=== PATIENT | female | born 1995 | race Caucasian/White ===

== ENCOUNTER → 2016-09-28 | Outpatient (CLI) | payer OTHER ==
[2016-09-28 12:08] LABS: Glucose 3 Hour, Gest 59 mg/dL
== END | disposition home or self-care (01) ==
LOC: LABWHC1 07:44
PROVIDERS: ATTEND Obstetrics & Gynecology
DX: Z34.83 Encounter for supervision of other normal pregnancy, third trimester (principal)
CPT/HCPCS: 36415; 82951; 82952

== ENCOUNTER → 2016-09-28 | Outpatient (CLI) | payer OTHER ==
--- NOTE | 2016-09-29 08:06 | US ---
EXAMINATION TYPE: US OB >= 14 wk fetus DATE OF EXAM: 09/28/2016 4:12 PM COMPARISON: None CLINICAL HISTORY: O36.63X0 Large for dates GESTATIONAL AGE / DATING Physician Established: (35 weeks/4 days) EDC: 10/29/16 Dates by LMP: unknown Dates by First Scan: (35 weeks/2 days) EDC: 10/31/16 Dates by Current Scan: (33 weeks/4 days) EDC: 11/12/16 SURVEY IUP: Single PLACENTA: Anterior PREVIA: No Previa CINDY: 14.6 cm CERVICAL LENGTH (transabdominal: norm > 3.0cm): not seen CERVICAL LENGTH (transvaginal: norm> 2.5cm): 2.9 cm (Supplemental transvaginal imaging performed to verify cervical length.) BIOMETRY PRESENTATION: Vertex BPD: 8.7 cm 35 weeks / 0 days HC: 31.3 cm 35 weeks / 0 days AC: 30.6 cm 34 weeks / 4 days FL: 6.3 cm 32 weeks / 3 days ESTIMATED WEIGHT IN GRAMS: 2334 grams ESTIMATED WEIGHT IN LBS/OZS: 5 lbs. 2 oz. WEIGHT PERCENTAGE BASED ON ESTABLISHED DATES: 13.2 % HC/AC: 1.0 FL/AC: 20.5 HEART RATE: 155 bpm RHYTHM: Abnormal Anatomy seen: Kidneys Bladder Stomach Sag Spine Trv Spine 4 chamber heart situs diaphragm nose/lips not well seen 3 vessel chord TECHNOLOGIST IMPRESSION: As seen above IMPRESSION: Single viable intrauterine corresponding to ultrasound age 33 weeks 4 days with estimated d ate of delivery 12 Nov 2016 by today's exam. Limited survey.
== END | disposition home or self-care (01) ==
LOC: RADUSWWP 15:30
PROVIDERS: ATTEND Obstetrics & Gynecology
DX: O36.63X0 Maternal care for excessive fetal growth, third trimester, not applicable or unspecified (principal); Z3A.33 33 weeks gestation of pregnancy
CPT/HCPCS: 76805; 76817

== ENCOUNTER 2016-10-20 17:08 | Outpatient (CLI) | payer OTHER ==
[2016-10-20 17:21] VITALS: BP 146/77; PULSE 112; RESP 18; TEMP 96.9
--- NOTE | 2016-10-21 12:39 | P.MSEPDOC ---
Presenting Problems - Arrival Data Date of Arrival on Unit: 10/20/16 Time of Arrival on Unit: 17:08 Mode of Transport: Ambulatory - Complaint OB-Reason for Admission/Chief Complaint: Possible Onset of Labor Comment: contrcations every 7 min. pt denies leaking or bleeding Medical History - Information : 3 Para: 0 Term: 0 : 0 Abortions: Spontaneous or Elective: 0 Number of Living Children: 2 - Gestational Age Expected Date of Delivery: 10/29/16 Gestational Age by SARIKA (wks/days): 38 Weeks and 6 Days Review of Systems - Review of Systems Constitutional: No problems Breast: No problems ENT: No problems Cardiovascular: No problems Respiratory: No problems Gastrointestinal: No problems Genitourinary: No problems Musculoskeletal: No problems Neurological: No problems Skin: No problems Vital Signs - Temperature Temperature: 96.9 F Temperature Source: Temporal Artery Scan - Pulse Right Sitting Brachial Pulse Rate: 112 Pulse Assessment Method: Automatic Cuff - Respirations Respiratory Rate: 18 Oxygen Delivery Method: Room Air O2 Sat by Pulse Oximetry: 99 - Blood Pressure Right Arm Sitting Blood Pressure: 146/77 Blood Pressure Mean: 100 Blood Pressure Source: Automatic Cuff Medical Screen Scoring (Pre) - Uterine Contractions Frequency: > 5 minutes apart = 1 Duration: > 40 seconds = 2 Intensity: N/A - Maternal Vital Signs Maternal Temperature: N/A Maternal Blood Pressure: N/A Signs of Preeclampsia: N/A Maternal Respirations: N/A - Maternal Trauma Maternal Trauma: N/A - Assessment Baseline FHR: 145 Heart Rate - NICHD Category: Category I (Normal) = 0 NST: Reactive Position: N/A Station: N/A - Total Score Total Score (Pre): 3 - Level of Risk Level of Risk: Low (0-5) Medical Screen Scoring (Post) - Cervical Exam Dilation: 1-3 cm = 1 Membranes: Intact - Uterine Contractions Frequency: > 5 minutes apart = 1 Duration: > 40 seconds = 2 Intensity: N/A - Maternal Vital Signs Maternal Temperature: N/A Maternal Blood Pressure: N/A Signs of Preeclampsia: N/A Maternal Respirations: N/A - Maternal Trauma Maternal Trauma: N/A - Assessment Heart Rate: 155 Heart Rate - NICHD Category: Category I (Normal) = 0 NST: Reactive Position: N/A Station: N/A - Total Score Total Score (Post): 4 - Post Treatment Level of Risk Post Treatment Level of Risk: Low (0-5) Physician Notification (Post) - Physician Notified Physician Notified Date: 10/20/16 Physician Notified Time: 17:42 Physician/Practitioner Notified:: dr mckenzie Spoke With: verbal New Order Received: Yes - Notification Comment Comment: order to recheck pts cervix after one hour. if no change in cervix or pt condition, discharge patient with instructions. Disposition - Disposition OB Disposition: Discharge to home Discharge Date: 10/20/16 Discharge Time: 18:24 I agree with the RN Medical Screening Exam: Yes Risk & Benefit of care provided described in d/c instruction: Yes Diagnosis: FALSE LABOR, UNSPECIFIED
== END 2016-10-20 18:24 | disposition home or self-care (01) ==
LOC: FBPOP 17:08
PROVIDERS: ATTEND Obstetrics & Gynecology
DX: O47.9 False labor, unspecified (principal); Z3A.38 38 weeks gestation of pregnancy
CPT/HCPCS: 59025; G0463; 99213

== ENCOUNTER 2016-10-21 07:36 | Inpatient (IN) | payer OTHER ==
[2016-10-21] MEDS: LACTATED RINGERS 1,000 ML IV SCH ×2 (07:45→13:50)
[2016-10-21] MEDS ORDERED: LIDOCAINE 1% (PF) 10 MG/ML (30 ML SDV) SQ PRN (07:54)
[2016-10-21] MEDS ORDERED: TERBUTALINE 1 MG/ML VIAL SQ PRN (07:54)
[2016-10-21] MEDS ORDERED: METHYLERGONOVINE 0.2 MG/ML 1 ML AMP IM PRN (07:54)
[2016-10-21] MEDS ORDERED: OXYTOCIN 10 UNIT/ML 1 ML VIAL IM PRN (07:54)
[2016-10-21] MEDS ORDERED: CARBOPROST TROMETHAMINE 250 MCG/ML 1 ML AMP IM PRN (07:54)
[2016-10-21] MEDS ORDERED: OXYTOCIN 30 UNITS/500 ML NS 30 UNIT in SALINE 1 500ML.BAG IV SCH ×2 (08:00→17:30)
[2016-10-21 08:15] LABS: Basophils % (A) 0 %; CH 31.1; CHCM 34.9; Eosinophils # (A) 0.1 k/uL (0-0.7); Eosinophils % (A) 1 %; HCT 37.3 % (34.0-46.0); HDW 2.88; HGB 13.3 gm/dL (11.4-16.0); Luc # (Auto) 0.19; Luc % (Auto) 2; Lymphocytes # (A) 1.9 k/uL (1.0-4.8); Lymphocytes % (A) 22 %; MCHC 35.6 g/dL (31.0-37.0); MCV 89.8 fL (80.0-100.0); Mean Platelet Volume 8.5; Monocytes # (A) 0.6 k/uL (0-1.0); Monocytes % (A) 7 %; Neutrophils # (A) 6.1 k/uL (1.3-7.7); Neutrophils % (A) 69 %; RBC 4.16 m/uL (3.80-5.40); RDW 14.8 % (11.5-15.5); WBC 8.9 k/uL (3.8-10.6); WBC (Perox) 9.77
[2016-10-21 09:32] VITALS: BMI 35.2
[2016-10-21] MEDS ORDERED: BUTORPHANOL 1 MG/ML 1 ML VIAL IV PRN (11:07)
[2016-10-21] MEDS ORDERED: diphenhydrAMINE 50 MG CAP PO PRN (17:27)
[2016-10-21] MEDS ORDERED: Acetaminophen-Codeine 300-30mg TAB PO PRN ×2 (17:27)
[2016-10-21] MEDS ORDERED: WITCH HAZEL 1 EACH MED..PAD TOPICAL PRN (17:27)
[2016-10-21] MEDS ORDERED: HYDROCORTISONE 2.5% RECTAL CREAM 30 GM TUBE RECTAL PRN (17:27)
[2016-10-21] MEDS ORDERED: SIMETHICONE 80 MG CHEWABLE PO PRN (17:27)
[2016-10-21] MEDS ORDERED: BENZOCAINE/MENTHOL SPRAY 1 GM/SPRAY AEROSOL TOPICAL PRN (17:27)
[2016-10-21] MEDS ORDERED: ZOLPIDEM 5 MG TAB PO PRN (17:27)
[2016-10-21] MEDS ORDERED: diphenhydrAMINE 50 MG/ML 1 ML VIAL IVP PRN ×2 (17:27)
[2016-10-21] MEDS ORDERED: ACETAMINOPHEN TAB 325 MG TAB PO PRN (17:27)
[2016-10-21] MEDS ORDERED: diphenhydrAMINE 25 MG CAP PO PRN (17:27)
[2016-10-21] MEDS ORDERED: LANOLIN CREAM 5 GM TUBE TOPICAL PRN (17:27)
--- NOTE | 2016-10-21 17:27 | P.HPOB ---
History of Present Illness H&P Date: 10/21/16 Chief Complaint: SROM 21 year old presents at 38 weeks and 6 days with spontaneous rupture of membranes at 7am. HEr cervix was 1-2/70/-2 and she is not radha. heart tones 140-145 with moderate variability and reactive. Review of Systems All systems: negative Constitutional: Denies chills, Denies fever Eyes: denies blurred vision, denies pain Ears, nose, mouth and throat: Denies headache, Denies sore throat Cardiovascular: Denies chest pain, Denies shortness of breath Respiratory: Denies cough Gastrointestinal: Denies abdominal pain, Denies diarrhea, Denies nausea, Denies vomiting Genitourinary: Denies dysuria, Denies hematuria Musculoskeletal: Denies myalgias Integumentary: Denies pruritus, Denies rash Neurological: Denies numbness, Denies weakness Psychiatric: Denies anxiety, Denies depression Endocrine: Denies fatigue, Denies weight change Past Medical History Past Medical History: No Reported History Additional Past Medical History / Comment(s): Obstetric history: first was a vaginal delivery in 2013, 7#5oz. Second was a vaginal delivery in 2014, 5#12 oz. This is her third and she's had care with me since 11 weeks. B+, abs neg, Rub Imm, RPR NR, Hep B neg. GBS neg. History of Any Multi-Drug Resistant Organisms: None Reported Past Surgical History: No Surgical Hx Reported Past Anesthesia/Blood Transfusion Reactions: No Reported Reaction Past Psychological History: No Psychological Hx Reported Smoking Status: Current every day smoker Past Alcohol Use History: Occasional Past Drug Use History: Marijuana - Past Family History Mother Family Medical History: Thyroid Disorder Medications and Allergies Home Medications Medication Instructions Recorded Confirmed Type No Known Home Medications [No 10/21/16 10/21/16 History Known Home Medications] Allergies Allergy/AdvReac Type Severity Reaction Status Date / Time amoxicillin Allergy Rash/Hives Verified 10/21/16 09:24 Penicillins Allergy Rash/Hives Verified 10/21/16 09:24 Exam Osteopathic Statement: *. No significant issues noted on an osteopathic structural exam other than those noted in the History and Physical/Consult. - Vital Signs Vital signs: Vital Signs Temp Pulse Resp BP Pulse Ox 10/21/16 08:02 96.4 F L 87 16 133/76 97 Intake and Output 10/21/16 10/21/16 10/21/16 06:59 14:59 22:59 Intake Total 1000 Balance 1000 Intake: IV 1000 Lactated Ringers 1,000 ml 1000 @ 125 mls/hr IV .Q8H [facility] Rx#:[id number] Other: Weight 92.986 kg Patient Weight 10/22/16 06:59 Weight 92.986 kg Heart: Regular rate and rhythm Lungs: Clear to auscultation bilaterally Abdomen: Soft, nontender Extremities: Negative Homans sign Results Result Diagrams: 10/21/16 08:05 Abnormal Lab Results - Last 24 Hours (Table) 10/21/16 Range/Units 08:05 Plt Count 140 L (150-450) k/uL Assessment and Plan (1) Spontaneous rupture of membranes Status: Acute Plan: 1. Admit to family place 2. Pitocin augmentation 3. Anticipate normal vaginal delivery
--- NOTE | 2016-10-21 17:30 | P.PROBDLV ---
Vaginal Delivery Note - . Vaginal Delivery Note: 21-year-old presents at 38 weeks and 6 days with spontaneous rupture membranes at 7 AM. When she presented to triage her cervix is 1-2 cm dilated, 70% effaced, -2 station. She was not radha. Pitocin augmentation was started. heart tones are 140-145 with moderate variability and reactive. She did get an epidural and was comfortable. Her cervix was completely dilated at 1700, she pushed, and delivered a viable female infant over intact perineum under epidural anesthesia at 1710. Head delivered OA, anterior shoulder delivered gentle downward traction followed by posterior shoulder and rest of body. Nose and mouth bulb suctioned, cord clamped and cut, placed mother's abdomen. Apgars 9, 9, weight 5 lbs. 7 oz. Placenta delivered spontaneously, intact with three-vessel cord at 1716. Vagina, cervix, and perineum were inspected. No lacerations noted. Estimated blood loss 200 mL. Mother and baby in stable condition.
[2016-10-21] MEDS: IBUPROFEN 600 MG TAB PO PRN (19:26)
[2016-10-21] MEDS: SENNOSIDES-DOCUSATE SODIUM 1 EACH TAB PO SCH (19:27)
[2016-10-22] MEDS: IBUPROFEN 600 MG TAB PO PRN ×2 (06:28→15:22)
[2016-10-22] MEDS: SENNOSIDES-DOCUSATE SODIUM 1 EACH TAB PO SCH (07:45)
--- NOTE | 2016-10-22 08:52 | P.DS ---
Providers Date of admission: 10/21/16 07:36 Expected date of discharge: 10/22/16 Attending physician: Gela Grimes - Discharge Diagnosis(es) (1) Spontaneous rupture of membranes Current Visit: Yes Status: Resolved (2) Normal vaginal delivery Current Visit: No Status: Acute Hospital Course: Patient presented with spontaneous rupture membranes. She underwent Pitocin augmentation and had a normal vaginal delivery. Her course was uncomplicated. She'll be discharged home day #1 in stable condition to follow-up with me in 6 weeks. Plan - Discharge Summary New Discharge Prescriptions: Ibuprofen [Motrin] 600 mg PO Q6HR PRN #30 tab PRN Reason: Mild Pain Or Fever >= 100.5 Discharge Medication List Ibuprofen [Motrin] 600 mg PO Q6HR PRN #30 tab 10/22/16 [Rx] Follow up Appointment(s)/Referral(s): Gela Grimes DO [Doctor of Osteopathic Medicine] - 6 Weeks Discharge Disposition: HOME SELF-CARE
[2016-10-22] MEDS ORDERED: SODIUM CHLORIDE 0.9% 100 ML BAG ONE (13:34)
[2016-10-22] MEDS ORDERED: fentaNYL (PF) 50 MCG/ML 5 ML AMP ONE (13:34)
[2016-10-22] MEDS ORDERED: BUPIVACAINE (PF) 0.25% 30 ML VIAL ONE (13:34)
[2016-10-22 16:23] VITALS: BP 116/69; PULSE 86; RESP 18; TEMP 97.8
== END 2016-10-22 18:45 | disposition home or self-care (01) | DRG 775 ==
LOC: 4FBP 07:36
PROVIDERS: ADMIT Obstetrics & Gynecology; ATTEND Obstetrics & Gynecology
PROC: 10E0XZZ Delivery of Products of Conception, External Approach (ICD-10-PCS; principal; 2016-10-21)
PROC: 3E0S3NZ Introduction of Analgesics, Hypnotics, Sedatives into Epidural Space, Percutaneous Approach (ICD-10-PCS; 2016-10-21)
DX: O99.334 Smoking (tobacco) complicating childbirth (principal); F17.200 Nicotine dependence, unspecified, uncomplicated; Z37.0 Single live birth; Z3A.38 38 weeks gestation of pregnancy; Z83.49 Family history of other endocrine, nutritional and metabolic diseases; Z88.0 Allergy status to penicillin
CPT/HCPCS: 85025; 88307

== ENCOUNTER 2016-10-29 01:15 | Observation (INO) | payer OTHER ==
[2016-10-29] MEDS ORDERED: SODIUM CHLORIDE 0.9% 1,000 ML IV ONE (01:24)
[2016-10-29] MEDS ORDERED: MORPHINE SULFATE 4 MG/ML SYRINGE IVP STA (01:41)
--- NOTE | 2016-10-29 01:50 | ED ---
Female Urogenital HPI <Kaushal Langley - Last Filed: 10/29/16 03:24> - General Source: EMS, RN notes reviewed Mode of arrival: EMS Limitations: no limitations <Bette Dooley - Last Filed: 10/29/16 04:08> - General Chief complaint: Vaginal Bleeding Stated complaint: female Time Seen by Provider: 10/29/16 01:19 - History of Present Illness Initial comments: Patient is a 21-year-old female presents emergency room for evaluation of vaginal bleeding. Patient states on 10/21/16 she gave to her child. Patient states her child was born at 38 weeks, 6 days. Patient states it was normal vaginal . Patient states afterwards she did pass a few clots. Patient states she was told by her SALES ADVISORY MANAGER that this was normal. Patient states that she was told if it gets worse to follow-up with OB as soon as possible or come to the emergency room. Patient states today she woke up not feeling well. Patient states she had an episode where she sat on the toilet and passed multiple clots and lots of blood. Patient states she felt like she was "peeing out blood". Patient states she then felt extremely lightheaded and nauseous so she called EMS. Patient states she's feeling very lightheaded and weak. Patient is . Patient states this has not happened to her during her other previous pregnancies. Patient states she's having bilateral lower abdominal cramping as well. Patient states the cramping radiates to her back. Patient denies chest pain or shortness of breath. Patient denies any known fevers. Patient denies pain or burning during urination, trouble urinating or blood in urine. (Bette Dooley) - Related Data Previous Rx's Medication Instructions Recorded Ibuprofen [Motrin] 600 mg PO Q6HR PRN #30 tab 10/22/16 Allergies Allergy/AdvReac Type Severity Reaction Status Date / Time amoxicillin Allergy Rash/Hives Verified 10/21/16 09:24 Penicillins Allergy Rash/Hives Verified 10/21/16 09:24 Review of Systems ROS Other: All systems not noted in ROS Statement are negative. <Kaushal Langley - Last Filed: 10/29/16 03:24> ROS Other: All systems not noted in ROS Statement are negative. <Bette Dooley - Last Filed: 10/29/16 04:08> ROS Statement: Those systems with pertinent positive or pertinent negative responses have been documented in the HPI. Past Medical History Past Medical History: No Reported History Additional Past Medical History / Comment(s): Obstetric history: first was a vaginal delivery in 2013, 7#5oz. Second was a vaginal delivery in 2015, 5#12 oz. This is her third and she's had care with me since 11 weeks. B+, abs neg, Rub Imm, RPR NR, Hep B neg. GBS neg. History of Any Multi-Drug Resistant Organisms: None Reported Past Surgical History: No Surgical Hx Reported Past Anesthesia/Blood Transfusion Reactions: No Reported Reaction Past Psychological History: No Psychological Hx Reported Smoking Status: Current every day smoker Past Alcohol Use History: Occasional Past Drug Use History: Marijuana - Past Family History Mother Family Medical History: Thyroid Disorder <Bette Dooley - Last Filed: 10/29/16 04:08> General Exam <Kaushal Langley - Last Filed: 10/29/16 03:24> Limitations: no limitations General appearance: alert, in no apparent distress Head exam: Present: atraumatic, normocephalic, normal inspection Eye exam: Present: normal appearance ENT exam: Present: normal exam Neck exam: Present: normal inspection Respiratory exam: Present: normal lung sounds bilaterally. Absent: respiratory distress Cardiovascular Exam: Present: normal rhythm, tachycardia, normal heart sounds GI/Abdominal exam: Present: soft, tenderness (Diffuse right lower quadrant left lower quadrant tenderness), normal bowel sounds. Absent: distended, guarding, rebound, rigid External exam: Present: normal external exam Speculum exam: Present: vaginal bleeding (Mild vaginal bleeding and few clots noted.) Extremities exam: Present: normal inspection Back exam: Present: normal inspection Neurological exam: Present: alert, oriented X3, CN II-XII intact, normal gait Psychiatric exam: Present: normal affect, normal mood Skin exam: Present: warm, dry, intact, normal color. Absent: rash <Bette Dooley - Last Filed: 10/29/16 04:08> - General Exam Comments Initial Comments: Laying in exam room, no acute distress. (Bette Dooley) Medical Decision Making - Lab Data Result diagrams: 10/29/16 01:51 10/29/16 01:51 <Kaushal Langley - Last Filed: 10/29/16 03:24> - Lab Data Result diagrams: 10/29/16 01:51 10/29/16 01:51 Interpretation: no acute changes - Radiology Data Radiology results: report reviewed, image reviewed <Bette Dooley - Last Filed: 10/29/16 04:08> - Medical Decision Making Patient is a 21-year-old female presents emergency room for evaluation of vaginal bleeding. Patient's hemoglobin on 10/21/16 was 13.3. Patient 's hemoglobin today is 11.2. Patient is having mild vaginal bleeding with abdominal cramping. Ultrasound showed retained products of conception. Case discussed with Dr. Langley. Dr. Langley discussed case with Dr. Braga who agreed to admit patient. Patient is noted to have a fever as well. Patient is tachycardic. Patient started on Methergine, Kefzol. Repeat CBC at 6 AM. Lactic acid pending. NPO diet. (Bette Dooley) - Lab Data Lab Results 10/29/16 10/29/16 10/29/16 Range/Units 01:51 01:51 01:51 WBC 11.3 H (3.8-10.6) k/uL RBC 3.55 L (3.80-5.40) m/uL Hgb 11.2 L (11.4-16.0) gm/dL Hct 31.7 L (34.0-46.0) % MCV 89.4 (80.0-100.0) fL MCH 31.5 (25.0-35.0) pg MCHC 35.3 (31.0-37.0) g/dL RDW 13.8 (11.5-15.5) % Plt Count 191 (150-450) k/uL Neutrophils % 77 % Lymphocytes % 13 % Monocytes % 8 % Eosinophils % 1 % Basophils % 0 % Neutrophils # 8.7 H (1.3-7.7) k/uL Lymphocytes # 1.4 (1.0-4.8) k/uL Monocytes # 0.9 (0-1.0) k/uL Eosinophils # 0.1 (0-0.7) k/uL Basophils # 0.0 (0-0.2) k/uL PT (9.0-12.0) sec INR (<1.1) Sodium 138 (137-145) mmol/L Potassium 4.2 (3.5-5.1) mmol/L Chloride 106 (98-107) mmol/L Carbon Dioxide 22 (22-30) mmol/L Anion Gap 10 mmol/L BUN 12 (7-17) mg/dL Creatinine 0.90 (0.52-1.04) mg/dL Est GFR (MDRD) Af Amer >60 (>60 ml/min/1.73 sqM) Est GFR (MDRD) Non-Af >60 (>60 ml/min/1.73 sqM) Glucose 91 (74-99) mg/dL Calcium 9.0 (8.4-10.2) mg/dL Total Bilirubin 0.3 (0.2-1.3) mg/dL AST 15 (14-36) U/L ALT 19 (9-52) U/L Alkaline Phosphatase 111 (38-126) U/L Total Protein 6.2 L (6.3-8.2) g/dL Albumin 3.2 L (3.5-5.0) g/dL Blood Type B Positive Blood Type Recheck No Antibody Screen NEGATIVE Spec Expiration Date 11/01/2016 - 235010/29/16 Range/Units 01:51 WBC (3.8-10.6) k/uL RBC (3.80-5.40) m/uL Hgb (11.4-16.0) gm/dL Hct (34.0-46.0) % MCV (80.0-100.0) fL MCH (25.0-35.0) pg MCHC (31.0-37.0) g/dL RDW (11.5-15.5) % Plt Count (150-450) k/uL Neutrophils % % Lymphocytes % % Monocytes % % Eosinophils % % Basophils % % Neutrophils # (1.3-7.7) k/uL Lymphocytes # (1.0-4.8) k/uL Monocytes # (0-1.0) k/uL Eosinophils # (0-0.7) k/uL Basophils # (0-0.2) k/uL PT 10.4 (9.0-12.0) sec INR 1.0 (<1.1) Sodium (137-145) mmol/L Potassium (3.5-5.1) mmol/L Chloride (98-107) mmol/L Carbon Dioxide (22-30) mmol/L Anion Gap mmol/L BUN (7-17) mg/dL Creatinine (0.52-1.04) mg/dL Est GFR (MDRD) Af Amer (>60 ml/min/1.73 sqM) Est GFR (MDRD) Non-Af (>60 ml/min/1.73 sqM) Glucose (74-99) mg/dL Calcium (8.4-10.2) mg/dL Total Bilirubin (0.2-1.3) mg/dL AST (14-36) U/L ALT (9-52) U/L Alkaline Phosphatase (38-126) U/L Total Protein (6.3-8.2) g/dL Albumin (3.5-5.0) g/dL Blood Type Blood Type Recheck Antibody Screen Spec Expiration Date Disposition <Kaushal Langley - Last Filed: 10/29/16 03:24> Decision Date: 10/29/16 <Bette Dooley - Last Filed: 10/29/16 04:08> Clinical Impression: bleeding Disposition: ADMITTED IP TO THIS [facility] Condition: Stable Referrals: Giulia Love MD [Primary Care Provider] - 1-2 days
[2016-10-29 02:16] LABS: ALT 19 U/L (9-52); AST 15 U/L (14-36); Alkaline Phosphatase 111 U/L (38-126); Anion Gap 10 mmol/L; Blood Urea Nitrogen 12 mg/dL (7-17); Carbon Dioxide 22 mmol/L (22-30); Chloride 106 mmol/L (98-107); Glucose 91 mg/dL (74-99); Non-African American GFR(MDRD) >60 (>60 ml/min/1.73 sqM); Potassium 4.2 mmol/L (3.5-5.1); Sodium 138 mmol/L (137-145); Total Bilirubin 0.3 mg/dL (0.2-1.3); Total Protein 6.2 g/dL (6.3-8.2)
[2016-10-29 02:33] LABS: Prothrombin Time 10.4 sec (9.0-12.0)
--- NOTE | 2016-10-29 02:37 | US ---
EXAM: US Pelvis Complete, Transabdominal. CLINICAL HISTORY: Reason: Pain TECHNIQUE: Real-time transabdominal pelvic ultrasound (complete) with image documentation. COMPARISON: No relevant prior studies available. FINDINGS: Uterus/cervix: Uterus measures 14.3 x 8.9 x 8.8 cm. The uterus is diffusely heterogeneous and enlarged consistent with uterus. There is focal complex cystic area in the central uterus measuring approximately 4.6 x 3.7 cm. This demonstrate increased color flow. Retained product of conception is difficult to exclude. Endometrial stripe measures approximately 5 cm. No myometrial mass. Right ovary: Right ovary measures 2.5 x 1.7 x 1.7 cm. Color flow is seen. Normal blood flow. Left ovary: Left ovary measures 3.9 x 1.8 x 2.4 cm. Color flow is seen. Normal blood flow. Free fluid: No significant free fluid. Bladder: Unremarkable as visualized. Wall is normal thickness for degree of distention. IMPRESSION: 1. Thickened complex heterogeneous endometrium with findings concerning for retained products of conception. Close follow-up recommended. 2. Both ovaries seen and appear within normal limits
[2016-10-29 02:38] LABS: Basophils % (A) 0 %; CH 31.5; CHCM 35.4; Eosinophils # (A) 0.1 k/uL (0-0.7); Eosinophils % (A) 1 %; HCT 31.7 % (34.0-46.0); HDW 3.01; HGB 11.2 gm/dL (11.4-16.0); Luc # (Auto) 0.16; Luc % (Auto) 2; Lymphocytes # (A) 1.4 k/uL (1.0-4.8); Lymphocytes % (A) 13 %; MCH 31.5 pg (25.0-35.0); MCHC 35.3 g/dL (31.0-37.0); MCV 89.4 fL (80.0-100.0); Mean Platelet Volume 7.5; Monocytes # (A) 0.9 k/uL (0-1.0); Monocytes % (A) 8 %; Neutrophils # (A) 8.7 k/uL (1.3-7.7); Neutrophils % (A) 77 %; RBC 3.55 m/uL (3.80-5.40); RDW 13.8 % (11.5-15.5); WBC 11.3 k/uL (3.8-10.6); WBC (Perox) 11.41
[2016-10-29] MEDS ORDERED: METHYLERGONOVINE 0.2 MG/ML 1 ML AMP IM ONE (03:24)
[2016-10-29] MEDS ORDERED: ceFAZolin 1,000 MG in DEXTROSE/WATER 1 50ML.BAG IVPB STA (03:24)
[2016-10-29] MEDS ORDERED: ONDANSETRON 4 MG/2 ML VIAL IVP PRN (03:27)
[2016-10-29] MEDS ORDERED: NALOXONE 0.4 MG/ML 1 ML VIAL IV PRN (03:27)
[2016-10-29] MEDS ORDERED: MORPHINE SULFATE 4 MG/ML SYRINGE IV PRN (03:27)
[2016-10-29] MEDS: SODIUM CHLORIDE 0.9% 1,000 ML IV SCH ×2 (04:42→17:46)
[2016-10-29 05:48] VITALS: BMI 33.7
[2016-10-29 07:19] LABS: Basophils % (A) 0 %; CH 31.1; CHCM 34.2; Eosinophils # (A) 0.1 k/uL (0-0.7); Eosinophils % (A) 1 %; HDW 3.03; HGB 10.7 gm/dL (11.4-16.0); Luc # (Auto) 0.16; Luc % (Auto) 1; Lymphocytes # (A) 1.8 k/uL (1.0-4.8); Lymphocytes % (A) 16 %; MCH 31.5 pg (25.0-35.0); MCHC 34.5 g/dL (31.0-37.0); MCV 91.3 fL (80.0-100.0); Mean Platelet Volume 7.2; Monocytes # (A) 0.7 k/uL (0-1.0); Monocytes % (A) 6 %; Neutrophils # (A) 8.7 k/uL (1.3-7.7); Neutrophils % (A) 76 %; RBC 3.39 m/uL (3.80-5.40); RDW 13.8 % (11.5-15.5); WBC 11.4 k/uL (3.8-10.6); WBC (Perox) 12.33
--- NOTE | 2016-10-29 08:15 | P.HPOB ---
History of Present Illness H&P Date: 10/29/16 Chief Complaint: bleeding This is a 21 y.o. female 3, para 3, with recent vaginal delivery on 10/21. She states she has been passing occasional clots ever since her delivery , but yesterday started passing a lot of clots and was bleeding heavy. She felt lightheaded, dizzy, and nauseated so she called EMS. She did state she was feeling some chills the last couple nights and waking up sweating. Since she has been admitted, she has passed about 2 clots. Her pelvic US did show a thickened endometrium with debris and cannot rule out retained products of conception. This morning she did get up and passed 1 clot along with a little bleeding. No dizziness with getting up this morning. OB Hx: . 3 . No complications. Review of Systems Constitutional: Reports chills, Reports fatigue, Reports night sweats Gastrointestinal: Reports abdominal pain, Reports nausea Genitourinary: Reports abnormal vaginal bleeding Neurological: Denies headaches Past Medical History Past Medical History: No Reported History History of Any Multi-Drug Resistant Organisms: None Reported Past Surgical History: No Surgical Hx Reported Past Anesthesia/Blood Transfusion Reactions: No Reported Reaction Past Psychological History: No Psychological Hx Reported Smoking Status: Current every day smoker Past Alcohol Use History: Occasional Past Drug Use History: Marijuana - Past Family History Mother Family Medical History: Thyroid Disorder Father History Unknown: Yes Medications and Allergies Allergies Allergy/AdvReac Type Severity Reaction Status Date / Time amoxicillin Allergy Rash/Hives Verified 10/21/16 09:24 Penicillins Allergy Rash/Hives Verified 10/21/16 09:24 Exam Osteopathic Statement: *. No significant issues noted on an osteopathic structural exam other than those noted in the History and Physical/Consult. - Vital Signs Vital signs: Vital Signs Temp Pulse Pulse Resp BP BP Pulse Ox 10/29/16 05:30 68 18 10/29/16 04:45 98.8 F 88 18 122/59 96 10/29/16 04:33 99.3 F 68 18 113/72 98 Intake and Output 10/28/16 10/29/16 10/29/16 22:59 06:59 14:59 Output Total 400 Balance -400 Output: Urine 400 Other: Voiding Method Toilet # Voids 1 Weight 89 kg HEENT: within normal limits Heart: regular rate and rhythm Lungs: clear to auscultation bilaterally Abdomen: soft, mild suprapubic tenderness over uterine fundus. Fundus is firm. Peripad: Saturated with dark blood, but no clot (last changed 2 hours ago) With uterine massage, a little more dark blood is noted, but no clots expressed. Extremities: Neg. Ron's Results Result Diagrams: 10/29/16 07:08 10/29/16 01:51 Abnormal Lab Results - Last 24 Hours (Table) 10/29/16 Range/Units 07:08 WBC 11.4 H (3.8-10.6) k/uL RBC 3.39 L (3.80-5.40) m/uL Hgb 10.7 L (11.4-16.0) gm/dL Hct 31.0 L (34.0-46.0) % Neutrophils # 8.7 H (1.3-7.7) k/uL Assessment and Plan (1) endometritis Status: Acute (2) bleeding Status: Acute Plan: Will admit for IV antibiotics. Will add Gentamycin to Kefzol. Advised hemoglobin is stable and will try to avoid D&C unless necessary due to the endometritis. Bleeding has slowed considerably from yesterday.
[2016-10-29] MEDS ORDERED: GENTAMICIN PER PHARMACY MISCELLANE PRN (08:17)
[2016-10-29] MEDS ORDERED: Acetaminophen-Codeine 300-30mg TAB PO PRN ×2 (08:20)
[2016-10-29] MEDS ORDERED: GENTAMICIN 160 MG in SODIUM CHLORIDE 0.9% 100 ML IVPB ONE (10:00)
[2016-10-29] MEDS: IBUPROFEN 600 MG TAB PO PRN ×2 (11:04→17:44)
[2016-10-29] MEDS: METHYLERGONOVINE 0.2 MG TAB PO SCH ×3 (13:02→20:43)
[2016-10-29] MEDS: ceFAZolin 2 GM in SODIUM CHLORIDE 0.9% 100 ML IVPB SCH (15:48)
[2016-10-29] MEDS ORDERED: ZOLPIDEM 10 MG TAB PO PRN (19:03)
--- NOTE | 2016-10-29 19:14 | P.PN ---
Progress Note - Text Patient was seen and examined. She continues to have continuous type bleeding throughout the day. Patient indicated to me that she has been passing large clots at home and review of the ultrasound shows most likely retained placental products. I discussed options with the patient including expectant management versus D&C and I'm recommending proceed with a D&C at this time. Patient understands this surgery and risks including risks of infection, bleeding, possible uterine perforation. All the patient's questions are answered and a written consent is obtained. I will proceed with suction D&C tomorrow morning because the patient has eaten dinner tonight. Contacted anesthesia was arranged for 7:30 tomorrow morning.
[2016-10-29] MEDS: GENTAMICIN 120 MG in SODIUM CHLORIDE 0.9% 100 ML IVPB SCH (20:41)
[2016-10-29] MEDS: NICOTINE 7MG/24HR PATCH TRANSDERM SCH (20:41)
[2016-10-30] MEDS: ceFAZolin 2 GM in SODIUM CHLORIDE 0.9% 100 ML IVPB SCH (00:07)
[2016-10-30] MEDS: GENTAMICIN 120 MG in SODIUM CHLORIDE 0.9% 100 ML IVPB SCH (04:05)
[2016-10-30 05:37] LABS: Basophils % (A) 0 %; CH 31.2; CHCM 33.4; Eosinophils # (A) 0.1 k/uL (0-0.7); Eosinophils % (A) 2 %; HGB 9.3 gm/dL (11.4-16.0); Luc # (Auto) 0.09; Luc % (Auto) 1; Lymphocytes # (A) 1.6 k/uL (1.0-4.8); Lymphocytes % (A) 20 %; MCH 30.2 pg (25.0-35.0); MCHC 32.2 g/dL (31.0-37.0); MCV 93.8 fL (80.0-100.0); Mean Platelet Volume 7.4; Monocytes # (A) 0.5 k/uL (0-1.0); Monocytes % (A) 6 %; Neutrophils # (A) 5.7 k/uL (1.3-7.7); Neutrophils % (A) 71 %; RBC 3.09 m/uL (3.80-5.40); RDW 13.9 % (11.5-15.5); WBC 8.1 k/uL (3.8-10.6); WBC (Perox) 8.11
--- NOTE | 2016-10-30 05:56 | P.PN ---
Progress Note - Text Patient continues to bleed overnight and passed one large clot. Hemoglobin has dropped to 9.3. D&C is scheduled for earlier this morning. I did rediscuss the surgery with the patient. Plan is suction D&C at 7:30 this morning.
[2016-10-30] MEDS: SODIUM CHLORIDE 0.9% 1,000 ML IV SCH ×2 (06:22→10:37)
[2016-10-30] MEDS ORDERED: KETOROLAC 30 MG/ML 1 ML VIAL ONE (07:31)
[2016-10-30] MEDS ORDERED: IV FLUID CONTINUATION 800 ML IV ONE (07:31)
[2016-10-30] MEDS ORDERED: SUCCINYLCHOLINE CHLORIDE 100 MG/5 ML SYR IV ONE (07:31)
[2016-10-30] MEDS ORDERED: HYDROmorphone (PF) 1 MG/ML ONE (07:31)
[2016-10-30] MEDS ORDERED: LIDOCAINE 1% INJ 10MG/ML (20 ML MDV) ONE (07:31)
[2016-10-30] MEDS ORDERED: PROPOFOL 10 MG/ML 20 ML VIAL IV ONE (07:31)
[2016-10-30] MEDS ORDERED: fentaNYL (PF) 50 MCG/ML 2 ML AMP ONE (07:31)
--- NOTE | 2016-10-30 08:10 | P.OP ---
Date of Procedure: 10/30/16 Preoperative Diagnosis: Retained products of conception and uterine hemorrhage Postoperative Diagnosis: Same Procedure(s) Performed: Suction D&C Anesthesia: NURYS Surgeon: Ezequiel Ye Estimated Blood Loss (ml): 100 Urine output (ml): 100 Pathology: other (Uterine contents) Condition: stable Disposition: PACU Indications for Procedure: Please see dictated H&P per Dr. Braga on this patient's admission. Brief summary this is a pleasant 21-year-old multiparous patient status post vaginal delivery approximately 1-1/2 weeks ago was admitted through the emergency department with bleeding. Patient is placed on IV antibiotics, however ultrasound did show what appears to be large amount of retained products. Patient continued to bleed and hemoglobin dropped to 9.3 and I advised to proceed with suction D&C for treatment. Patient does understand the surgery and risks clear as infection, bleeding, possible uterine perforation. All the patient's questions are answered written consent is obtained. Operative Findings: Patient had about a 2-3 cm piece of what appears to be placental tissue and some amniotic membranes. Description of Procedure: This patient is taken to the operating room where she is laid in the supine position. She subsequent undergoes general endotracheal anesthesia without incident. With an adequate level of anesthesia was placed in dorsal lithotomy position. She has a vaginal perineal prep and drape. Examination under anesthesia shows a enlarged uterus. Cervix is dilated to allow 1 finger. A weighted speculum was placed in the posterior vagina. The bladder is drained for 100 mL of clear urine. I placed an Allis clamp and the anterior lip of the cervix. Cervix is easily dilated to allow a 14-Hebrew curved curet into the uterine cavity. Suction is applied and a large amount of tissue is removed. Multiple passes are made until no further tissue was noted. A gentle sharp curettage done of all 4 quadrants as well and again no further tissue was noted. Bleeding subsides at this time. At this point the procedure is ended. The Allis clamp and weighted speculum removed. All counts are correct 3. Patient is taken to the recovery room in satisfactory condition. No complications.
--- NOTE | 2016-10-30 08:13 | P.DS ---
Providers Date of admission: 10/29/16 04:18 Expected date of discharge: 10/30/16 Attending physician: Herlinda Braga Primary care physician: Giulia Love - Discharge Diagnosis(es) (1) Retained products of conception after delivery with complications Current Visit: Yes Status: Acute Hospital Course: Please see dictated H&P per Dr. Braga on this patient's admission. Brief summary is a 21-year-old multiparous patient admitted through the emergency department with bleeding. Patient's placed on IV antibiotics and ultrasound showed evidence of retained products of conception. Patient continued bleeding and subsequently underwent a suction D&C. Postoperatively patient did well was felt be stable for discharge home follow up with Dr. Grimes 1 week. Procedures: Suction D&C Patient Condition at Discharge: Good Plan - Discharge Summary New Discharge Prescriptions: Acetaminophen-Codeine 300-30mg [Tylenol w/codeine #3] 1 - 2 each PO Q4HR PRN # 30 tab PRN Reason: Pain Scale 4-6 Cephalexin [Keflex] 500 mg PO Q6HR #28 cap Ibuprofen [Motrin] 600 mg PO Q6HR PRN #40 tab PRN Reason: Pain Scale 1-3 Discharge Medication List Ibuprofen [Motrin] 600 mg PO Q6HR PRN #30 tab 10/22/16 [Rx] Acetaminophen-Codeine 300-30mg [Tylenol w/codeine #3] 1 - 2 each PO Q4HR PRN # 30 tab 10/29/16 [Rx] Cephalexin [Keflex] 500 mg PO Q6HR #28 cap 10/29/16 [Rx] Ibuprofen [Motrin] 600 mg PO Q6HR PRN #40 tab 10/29/16 [Rx] Follow up Appointment(s)/Referral(s): Gela Grimes DO [Doctor of Osteopathic Medicine] - 1 Week (Please follow-up with Dr. Grimes next week for a postoperative visit.) Patient Instructions/Handouts: Dilation and Curettage (DC) Activity/Diet/Wound Care/Special Instructions: No intercourse or anything per vagina for 6 weeks. Please call if any fever, chills, excessive vaginal bleeding, and/or abdominal pain. Please take an antibiotic 4 times a day as directed for [address] Grimes next week for a follow-up visit. Discharge Disposition: HOME SELF-CARE
[2016-10-30] MEDS: METHYLERGONOVINE 0.2 MG TAB PO SCH (10:34)
[2016-10-30] MEDS: NICOTINE 7MG/24HR PATCH TRANSDERM SCH (10:34)
[2016-10-30] MEDS: IBUPROFEN 600 MG TAB PO PRN (10:39)
[2016-10-30 12:50] VITALS: BP 110/58; PULSE 99; RESP 20; TEMP 97.2
[2016-10-30] MEDS ORDERED: GENTAMICIN TROUGH DUE 1 EACH MISC MISCELLANE ONE (19:30)
[2016-10-30] MEDS ORDERED: GENTAMICIN PEAK DUE 1 EACH MISC MISCELLANE ONE (21:30)
== END 2016-10-30 13:00 | disposition home or self-care (01) ==
LOC: SUPCPDRO 01:15 → EC 01:15 → 6PED 04:18
PROVIDERS: ADMIT Obstetrics & Gynecology; ATTEND Obstetrics & Gynecology
DX: O72.2 Delayed and secondary postpartum hemorrhage (principal); O99.335 Smoking (tobacco) complicating the puerperium; O86.12 Endometritis following delivery; F17.200 Nicotine dependence, unspecified, uncomplicated; R42 Dizziness and giddiness; R11.0 Nausea; R53.1 Weakness; R10.30 Lower abdominal pain, unspecified; Z88.0 Allergy status to penicillin
CPT/HCPCS: 96361 ×2; 96372 ×2; 96374 ×2; 99285 ×2; 59160; 36415; 86900; 86901; 88305; 80053; 83605; 85025 ×2; 85610; 86850; 87040; 93975; 76856; 96375; G0378 ×2; S4990 ×2; J2270; J1580 ×2; J2210; J0690 ×3; J2001; J3010; J1885; J1170; J0330; J2704; 96365; 96366; 96367; 96376

== ENCOUNTER → 2016-12-21 | Outpatient (CLI) | payer OTHER ==
[2016-12-21 16:22] LABS: Basophils % (A) 1 %; CH 28.3; CHCM 31.9; Eosinophils # (A) 0.1 k/uL (0-0.7); Eosinophils % (A) 2 %; HCT 41.7 % (34.0-46.0); HDW 3.22; Hypochromasia Slight; Luc # (Auto) 0.13; Luc % (Auto) 2; Lymphocytes # (A) 2.7 k/uL (1.0-4.8); Lymphocytes % (A) 35 %; MCH 28.4 pg (25.0-35.0); Mean Platelet Volume 8.1; Monocytes # (A) 0.4 k/uL (0-1.0); Monocytes % (A) 6 %; Neutrophils # (A) 4.4 k/uL (1.3-7.7); Neutrophils % (A) 56 %; RDW 13.4 % (11.5-15.5); WBC 7.8 k/uL (3.8-10.6); WBC (Perox) 7.94
[2016-12-21 16:28] LABS: HGB 13.3 gm/dL (11.4-16.0); MCV 88.6 fL (80.0-100.0)
== END ==
LOC: LABPAT 16:01
PROVIDERS: ATTEND Obstetrics & Gynecology
DX: Z01.812 Encounter for preprocedural laboratory examination (principal)
CPT/HCPCS: 36415; 85025

== ENCOUNTER 2016-12-28 08:50 | Day surgery (SDC) | payer OTHER ==
[2016-12-24 15:07] VITALS: BMI 30.9
--- NOTE | 2016-12-27 18:16 | P.HPOB ---
History of Present Illness H&P Date: 12/27/16 Chief Complaint: Family planning 21-year-old presents for laparoscopic tubal ligation. Review of Systems All systems: negative Constitutional: Denies chills, Denies fever Eyes: denies blurred vision, denies pain Ears, nose, mouth and throat: Denies headache, Denies sore throat Cardiovascular: Denies chest pain, Denies shortness of breath Respiratory: Denies cough Gastrointestinal: Denies abdominal pain, Denies diarrhea, Denies nausea, Denies vomiting Genitourinary: Denies dysuria, Denies hematuria Musculoskeletal: Denies myalgias Integumentary: Denies pruritus, Denies rash Neurological: Denies numbness, Denies weakness Psychiatric: Denies anxiety, Denies depression Endocrine: Denies fatigue, Denies weight change Past Medical History Past Medical History: No Reported History History of Any Multi-Drug Resistant Organisms: None Reported Past Surgical History: No Surgical Hx Reported Additional Past Surgical History / Comment(s): D& C recently Past Anesthesia/Blood Transfusion Reactions: No Reported Reaction Smoking Status: Current every day smoker - Past Family History Mother Family Medical History: Thyroid Disorder Father History Unknown: Yes Medications and Allergies Home Medications Medication Instructions Recorded Confirmed Type Ferrous Sulfate [Feosol] 325 mg PO DAILY 12/24/16 12/24/16 History Allergies Allergy/AdvReac Type Severity Reaction Status Date / Time amoxicillin Allergy Rash/Hives Verified 12/24/16 14:46 Penicillins Allergy Rash/Hives Verified 12/24/16 14:46 Exam Osteopathic Statement: *. No significant issues noted on an osteopathic structural exam other than those noted in the History and Physical/Consult. Heart: Regular rate and rhythm Lungs: Clear to auscultation bilaterally Abdomen: Soft, nontender Extremities: Negative Homans sign Assessment and Plan (1) Family planning Status: Acute Plan: 1. Laparoscopic tubal ligation
[~2016-12-28 08:50] MED LIST: DEXAMETHASONE SOD PHOSPHATE 10 MG/ML 1 ML VIAL IV ONE; HYDROmorphone 1 MG/ML 1 ML SYRINGE IVP PRN; LACTATED RINGERS 1,000 ML IV SCH; LIDOCAINE 1% 20 ML VIAL (10MG/ML) FOR IV START INTRADERMA PRN; MIDAZOLAM 2 MG/2 ML VIAL IV PRN; ONDANSETRON 4 MG/2 ML VIAL IVP ONE; Pre Op ABX Message 1 EACH MISC MISCELLANE ONE; SCOPOLAMINE 1.5MG/72HR PATCH TRANSDERM ONE
[2016-12-28] MEDS ORDERED: LACTATED RINGERS 1,000 ML IV ONE ×2 (09:11→11:08)
[2016-12-28] MEDS ORDERED: SUCCINYLCHOLINE CHLORIDE 100 MG/5 ML SYR IV ONE (10:44)
[2016-12-28] MEDS ORDERED: KETOROLAC 30 MG/ML 1 ML VIAL ONE (10:44)
[2016-12-28] MEDS ORDERED: MIDAZOLAM 2 MG/2 ML VIAL ONE (10:44)
[2016-12-28] MEDS ORDERED: fentaNYL (PF) 50 MCG/ML 2 ML AMP ONE (10:44)
[2016-12-28] MEDS ORDERED: PROPOFOL 10 MG/ML 20 ML VIAL IV ONE (10:44)
[2016-12-28] MEDS ORDERED: LIDOCAINE 1% INJ 10MG/ML (20 ML MDV) ONE (10:44)
[2016-12-28] MEDS ORDERED: BUPIVACAINE (PF) 0.25% 30 ML VIAL SQ ONE ×2 (11:07)
--- NOTE | 2016-12-28 11:20 | P.OP ---
Date of Procedure: 12/28/16 Preoperative Diagnosis: 1. Family planning Postoperative Diagnosis: 1. Family Planning Procedure(s) Performed: Laparoscopic tubal ligation Implants: Anesthesia: SAMUELA Surgeon: Gela Grimes Estimated Blood Loss (ml): 5 IV fluids (ml): 550 Urine output (ml): 100 Pathology: none sent Condition: stable Disposition: PACU Indications for Procedure: Operative Findings: Normal uterus tubes and ovaries Description of Procedure: Patient was taken to the operating room where general anesthesia was obtained without difficulty. She was prepped and draped in normal sterile fashion in the dorsal lithotomy position, legs placed in the Alexandru stirrups. Bladder drained of all urine. [place] speculum placed in the vagina and the anterior lip the cervix was grasped with single-tooth tenaculum. The uterus is sounded to 8 cm and the kroner manipulator was placed. Attention was then turned to the abdomen and gloves were changed. A 10 mm infraumbilical incision was made the scalpel and 10 mm optical trocar was placed under direct visualization. A 5 mm suprapubic Incision was made and a 5 mm optical trocar was placed under direct visualization. Survey of the pelvis revealed normal uterus tubes and ovaries. The left fallopian tube was grasped with a Kleppinger and fulgurated 2 -3 cm on this side in the ampullar portion. The right fallopian tube was grasped with a Kleppinger and fulgurated 2-3 cm in the ampullar portion. All instruments were then removed from the abdomen and vagina. The 10 mm infraumbilical incision was closed with 0 Vicryl and the fascial layer and then 4-0 Vicryl in a subcuticular fashion. The 5 mm incision was closed with 4-0 Vicryl in a subcuticular fashion. Patient tolerated procedure well, sponge and instrument counts correct 2 and she was taken to recovery room in stable condition.
[2016-12-28 11:39] VITALS: TEMP 97.2
[2016-12-28] MEDS ORDERED: HYDROcodone/APAP 5-325MG 1 EACH TAB PO ONE (12:12)
[2016-12-28] MEDS ORDERED: Acetaminophen-Codeine 300-30mg TAB PO ONE (12:14)
[2016-12-28 12:42] VITALS: BP 113/64; PULSE 56; RESP 20
== END 2016-12-28 13:11 | disposition home or self-care (01) ==
LOC: OR 08:50
PROVIDERS: ATTEND Obstetrics & Gynecology
DX: Z30.2 Encounter for sterilization (principal); F17.200 Nicotine dependence, unspecified, uncomplicated; Z88.0 Allergy status to penicillin
CPT/HCPCS: 81025; 58670; J2250; J1100; J2405; J2001; J3010; J1885; J0330; J2704

== ENCOUNTER 2018-04-20 20:39 | Emergency (ER) | payer OTHER ==
[2018-04-20 21:08] VITALS: RESP 18
[2018-04-20] MEDS ORDERED: DICYCLOMINE 20 MG TAB PO STA (21:32)
--- NOTE | 2018-04-20 21:36 | ED ---
Abdominal Pain HPI - General Chief Complaint: Abdominal Pain Stated Complaint: abdominal pain/nausea Time Seen by Provider: 04/20/18 21:09 Source: patient Mode of arrival: ambulatory Limitations: no limitations - History of Present Illness Initial Comments: This patient is a 22-year-old woman who presents to be evaluated for abdominal pain that came on Tuesday morning. She states that it is diffuse, cramping, and intermittent. When the pain comes on seems to last half hour 45 minutes. She states that it is moderate intensity. Currently there is no pain. She also has had a number of bowel movements that she describes as very loose or diarrhea. She has not noted any blood or dark tarry stools. She denies any change in urination. Last period was about 3-4 weeks ago and was normal. MD Complaint: abdominal pain Onset/Timin -: days(s) Location: diffuse Radiation: none Migration to: no migration Severity: moderate Quality: cramping Consistency: intermittent Improves With: nothing Worsens With: nothing Associated Symptoms: diarrhea Treatments Prior to Arrival: other (Tylenol) - Related Data LMP (females 10-50): 1 month Patient : No Previous Rx's Medication Instructions Recorded Sulfamethox-Tmp 800-160Mg [Bactrim 1 each PO Q12HR #6 tab 04/20/18 Ds] Allergies Allergy/AdvReac Type Severity Reaction Status Date / Time amoxicillin Allergy Rash/Hives Verified 04/20/18 21:49 Penicillins Allergy Rash/Hives Verified 04/20/18 21:49 Review of Systems ROS Statement: Those systems with pertinent positive or pertinent negative responses have been documented in the HPI. ROS Other: All systems not noted in ROS Statement are negative. Constitutional: Denies: fever, chills Respiratory: Denies: cough, dyspnea Cardiovascular: Denies: chest pain, palpitations, edema Gastrointestinal: Reports: abdominal pain, diarrhea. Denies: nausea, vomiting, constipation, melena, hematochezia Genitourinary: Denies: dysuria, hematuria Musculoskeletal: Denies: back pain Skin: Denies: rash Neurological: Denies: headache, weakness, numbness Past Medical History Past Medical History: No Reported History Additional Past Medical History / Comment(s): Obstetric history: first was a vaginal delivery in 2013, 7#5oz. Second was a vaginal delivery in 2014, 5#12 oz. This is her third and she's had care with me since 11 weeks. B+, abs neg, Rub Imm, RPR NR, Hep B neg. GBS neg. History of Any Multi-Drug Resistant Organisms: None Reported Past Surgical History: No Surgical Hx Reported Additional Past Surgical History / Comment(s): TUBAL LIGATION, DNC Past Anesthesia/Blood Transfusion Reactions: No Reported Reaction Past Psychological History: No Psychological Hx Reported Smoking Status: Current every day smoker Past Alcohol Use History: Occasional Past Drug Use History: None Reported - Past Family History Mother Family Medical History: Thyroid Disorder Father History Unknown: Yes General Exam Limitations: no limitations General appearance: alert, in no apparent distress Head exam: Present: atraumatic, normocephalic Eye exam: Present: normal appearance. Absent: scleral icterus, conjunctival injection ENT exam: Present: normal oropharynx Respiratory exam: Present: normal lung sounds bilaterally. Absent: respiratory distress, wheezes, rales, rhonchi, stridor Cardiovascular Exam: Present: regular rate, normal rhythm, normal heart sounds. Absent: systolic murmur, diastolic murmur, rubs, gallop GI/Abdominal exam: Present: soft, normal bowel sounds. Absent: distended, tenderness, guarding, rebound, rigid, mass, pulsatile mass, hernia Extremities exam: Present: normal inspection, normal capillary refill. Absent: pedal edema, calf tenderness Back exam: Present: normal inspection. Absent: CVA tenderness (R), CVA tenderness (L) Skin exam: Present: warm, dry, intact, normal color. Absent: rash Course Vital Signs 04/20/18 21:05 Temperature 98.3 F Pulse Rate 82 Respiratory 18 Rate Blood Pressure 114/85 O2 Sat by Pulse 100 Oximetry Medical Decision Making - Lab Data Result diagrams: 04/20/18 21:25 04/20/18 21:25 Lab Results 04/20/18 04/20/18 04/20/18 Range/Units 21:25 21:25 21:25 WBC 9.2 (3.8-10.6) k/uL RBC 5.64 H (3.80-5.40) m/uL Hgb 17.2 H (11.4-16.0) gm/dL Hct 50.2 H (34.0-46.0) % MCV 89.1 (80.0-100.0) fL MCH 30.5 (25.0-35.0) pg MCHC 34.2 (31.0-37.0) g/dL RDW 13.1 (11.5-15.5) % Plt Count 205 (150-450) k/uL Neutrophils % 63 % Lymphocytes % 22 % Monocytes % 8 % Eosinophils % 4 % Basophils % 1 % Neutrophils # 5.8 (1.3-7.7) k/uL Lymphocytes # 2.0 (1.0-4.8) k/uL Monocytes # 0.7 (0-1.0) k/uL Eosinophils # 0.4 (0-0.7) k/uL Basophils # 0.1 (0-0.2) k/uL Sodium 141 (137-145) mmol/L Potassium 4.2 (3.5-5.1) mmol/L Chloride 104 (98-107) mmol/L Carbon Dioxide 25 (22-30) mmol/L Anion Gap 12 mmol/L BUN 11 (7-17) mg/dL Creatinine 0.81 (0.52-1.04) mg/dL Est GFR (CKD-EPI)AfAm >90 (>60 ml/min/1.73 sqM) Est GFR (CKD-EPI)NonAf >90 (>60 ml/min/1.73 sqM) Glucose 88 (74-99) mg/dL Calcium 10.2 (8.4-10.2) mg/dL Total Bilirubin 0.4 (0.2-1.3) mg/dL AST 31 (14-36) U/L ALT 29 (9-52) U/L Alkaline Phosphatase 70 (38-126) U/L Total Protein 8.6 H (6.3-8.2) g/dL Albumin 4.9 (3.5-5.0) g/dL Amylase 53 (30-110) U/L Lipase 88 (23-300) U/L Urine Color Urine Appearance (Clear) Urine pH (5.0-8.0) Ur Specific [place] (1.001-1.035) Urine Protein (Negative) Urine Glucose (UA) (Negative) Urine Ketones (Negative) Urine Blood (Negative) Urine Nitrite (Negative) Urine Bilirubin (Negative) Urine Urobilinogen (<2.0) mg/dL Ur Leukocyte Esterase (Negative) Urine RBC (0-5) /hpf Urine WBC (0-5) /hpf Ur Squamous Epith Cells (0-4) /hpf Urine Mucus (None) /hpf Urine HCG, Qual Not Detected (Not Detectd) 04/20/18 Range/Units 21:25 WBC (3.8-10.6) k/uL RBC (3.80-5.40) m/uL Hgb (11.4-16.0) gm/dL Hct (34.0-46.0) % MCV (80.0-100.0) fL MCH (25.0-35.0) pg MCHC (31.0-37.0) g/dL RDW (11.5-15.5) % Plt Count (150-450) k/uL Neutrophils % % Lymphocytes % % Monocytes % % Eosinophils % % Basophils % % Neutrophils # (1.3-7.7) k/uL Lymphocytes # (1.0-4.8) k/uL Monocytes # (0-1.0) k/uL Eosinophils # (0-0.7) k/uL Basophils # (0-0.2) k/uL Sodium (137-145) mmol/L Potassium (3.5-5.1) mmol/L Chloride (98-107) mmol/L Carbon Dioxide (22-30) mmol/L Anion Gap mmol/L BUN (7-17) mg/dL Creatinine (0.52-1.04) mg/dL Est GFR (CKD-EPI)AfAm (>60 ml/min/1.73 sqM) Est GFR (CKD-EPI)NonAf (>60 ml/min/1.73 sqM) Glucose (74-99) mg/dL Calcium (8.4-10.2) mg/dL Total Bilirubin (0.2-1.3) mg/dL AST (14-36) U/L ALT (9-52) U/L Alkaline Phosphatase (38-126) U/L Total Protein (6.3-8.2) g/dL Albumin (3.5-5.0) g/dL Amylase (30-110) U/L Lipase (23-300) U/L Urine Color Yellow Urine Appearance Cloudy H (Clear) Urine pH 5.5 (5.0-8.0) Ur Specific [place] 1.021 (1.001-1.035) Urine Protein 1+ H (Negative) Urine Glucose (UA) Negative (Negative) Urine Ketones Negative (Negative) Urine Blood Small H (Negative) Urine Nitrite Negative (Negative) Urine Bilirubin Negative (Negative) Urine Urobilinogen <2.0 (<2.0) mg/dL Ur Leukocyte Esterase Large H (Negative) Urine RBC 5 (0-5) /hpf Urine WBC 85 H (0-5) /hpf Ur Squamous Epith Cells 38 H (0-4) /hpf Urine Mucus Rare H (None) /hpf Urine HCG, Qual (Not Detectd) Disposition Clinical Impression: Urinary tract infection Disposition: HOME SELF-CARE Condition: Good Instructions: Urinary Tract Infection in Women (ED) Prescriptions: Sulfamethox-Tmp 800-160Mg [Bactrim Ds] 1 each PO Q12HR #6 tab Is patient prescribed a controlled substance at d/c from ED?: No Referrals: Giulia Love MD [Primary Care Provider] - 1-2 days
[2018-04-20 21:46] LABS: Basophils # (A) 0.1 k/uL (0-0.2); Basophils % (A) 1 %; Eosinophils # (A) 0.4 k/uL (0-0.7); Eosinophils % (A) 4 %; HCT 50.2 % (34.0-46.0); HGB 17.2 gm/dL (11.4-16.0); Lymphocytes % (A) 22 %; MCH 30.5 pg (25.0-35.0); MCHC 34.2 g/dL (31.0-37.0); MCV 89.1 fL (80.0-100.0); Mean Platelet Volume 7.7; Monocytes # (A) 0.7 k/uL (0-1.0); Monocytes % (A) 8 %; Neutrophils # (A) 5.8 k/uL (1.3-7.7); Neutrophils % (A) 63 %; Platelet Count 205 k/uL (150-450); RBC 5.64 m/uL (3.80-5.40); RDW 13.1 % (11.5-15.5); WBC 9.2 k/uL (3.8-10.6)
[2018-04-20 21:53] LABS: Appearance,Urine Cloudy (Clear); Bilirubin,Urine Negative (Negative); Blood,Urine Small (Negative); Color,Urine Yellow; Glucose,Urine (UA) Negative (Negative); Ketones,Urine Negative (Negative); Leukocyte Esterase,Urine Large (Negative); Mucus,Urine Rare /hpf; Nitrite,Urine Negative (Negative); PH, Urine 5.5 (5.0-8.0); Protein,Urine 1+ (Negative); RBC,Urine 5 /hpf (0-5); Specific Gravity,Urine 1.021 (1.001-1.035); Squamous Epithelial Cell,Urine 38 /hpf (0-4); Urobilinogen,Urine <2.0 mg/dL (<2.0); WBC,Urine 85 /hpf (0-5)
[2018-04-20 22:02] LABS: ALT 29 U/L (9-52); AST 31 U/L (14-36); Albumin 4.9 g/dL (3.5-5.0); Alkaline Phosphatase 70 U/L (38-126); Amylase 53 U/L (30-110); Anion Gap 12 mmol/L; Blood Urea Nitrogen 11 mg/dL (7-17); Calcium 10.2 mg/dL (8.4-10.2); Carbon Dioxide 25 mmol/L (22-30); Chloride 104 mmol/L (98-107); Glucose 88 mg/dL (74-99); Lipase 88 U/L (23-300); Potassium 4.2 mmol/L (3.5-5.1); Sodium 141 mmol/L (137-145); Total Bilirubin 0.4 mg/dL (0.2-1.3); Total Protein 8.6 g/dL (6.3-8.2)
[2018-04-20] MEDS ORDERED: SULFAMETHOX-TMP 800-160MG 1 EACH TAB PO STA (22:06)
[2018-04-20 22:45] VITALS: BP 128/73; PULSE 80; TEMP 97.9
== END 2018-04-20 22:45 | disposition home or self-care (01) ==
LOC: EC 20:39
DX: N39.0 Urinary tract infection, site not specified (principal); R10.84 Generalized abdominal pain; R19.7 Diarrhea, unspecified; F17.200 Nicotine dependence, unspecified, uncomplicated; Z88.0 Allergy status to penicillin; Z98.51 Tubal ligation status
CPT/HCPCS: 36415; 80053; 81001; 81025; 82150; 83690; 85025; 99284

== ENCOUNTER 2018-12-19 19:17 | Emergency (ER) | payer OTHER ==
[2018-12-19 19:35] VITALS: BP 123/83; PULSE 62; RESP 16; TEMP 99.1
[2018-12-19] MEDS ORDERED: SODIUM CHLORIDE 0.9% 1,000 ML IV STA (19:52)
--- NOTE | 2018-12-19 19:54 | ED ---
Abdominal Pain HPI - General Chief Complaint: Abdominal Pain Stated Complaint: Abdominal Pain Time Seen by Provider: 12/19/18 19:37 Source: patient Mode of arrival: ambulatory Limitations: no limitations - History of Present Illness Initial Comments: Patient is a 23-year-old female presenting to the emergency department complaining of abdominal pain on and off 3 days. Patient states she went to [facility] [address] today and they wanted her to come to the ER. Patient denies having nausea, vomiting with abdominal pain. Patient states her pain is in the um bilical region, does not radiate. Patient has history of tubal ligation a few years ago. Patient states she has been able to eat and drink over the last few days. Patient states she had to go home from work yesterday because of her pain. Patient's last bowel movement was this morning and was normal. Patient denies any urinary complaints. No other complaints at this time. - Related Data Home Medications Medication Instructions Recorded Confirmed Ibuprofen [Motrin] 800 mg PO TID PRN 12/19/18 12/19/18 Previous Rx's Medication Instructions Recorded Dicyclomine [Bentyl] 20 mg PO TID #30 tablet 12/19/18 Allergies Allergy/AdvReac Type Severity Reaction Status Date / Time amoxicillin Allergy Rash/Hives Verified 12/19/18 20:12 Penicillins Allergy Rash/Hives Verified 12/19/18 20:12 Review of Systems ROS Statement: Those systems with pertinent positive or pertinent negative responses have been documented in the HPI. ROS Other: All systems not noted in ROS Statement are negative. Past Medical History Past Medical History: No Reported History Additional Past Medical History / Comment(s): Obstetric history: first was a vaginal delivery in 2013, 7#5oz. Second was a vaginal delivery in 2014, 5#12 oz. This is her third and she's had care with al since 11 weeks. B+, abs neg, Rub Imm, RPR NR, Hep B neg. GBS neg. History of Any Multi-Drug Resistant Organisms: None Reported Past Surgical History: No Surgical Hx Reported, Tubal Ligation Additional Past Surgical History / Comment(s): DNC Past Anesthesia/Blood Transfusion Reactions: No Reported Reaction Past Psychological History: No Psychological Hx Reported Smoking Status: Current every day smoker Past Alcohol Use History: Occasional Past Drug Use History: Marijuana - Past Family History Mother Family Medical History: Thyroid Disorder Father History Unknown: Yes General Exam - General Exam Comments Initial Comments: GENERAL: Well-appearing, well-nourished and in no acute distress. HEAD: Atraumatic, normocephalic. EYES: Pupils equal round and reactive to light, extraocular movements intact, sclera anicteric, conjunctiva are normal. ENT: TMs normal, nares patent, oropharynx clear without exudates. Moist mucous membranes. NECK: Normal range of motion, supple without lymphadenopathy or JVD. LUNGS: Breath sounds clear to auscultation bilaterally and equal. No wheezes r ales or rhonchi. HEART: Regular rate and rhythm without murmurs, rubs or gallops. ABDOMEN: Soft, nontender, normoactive bowel sounds. No guarding, no rebound. No masses appreciated. : Deferred EXTREMITIES: Normal range of motion, no pitting or edema. No clubbing or cyanosis. NEUROLOGICAL: Cranial nerves II through XII grossly intact. Normal speech, normal gait. PSYCH: Normal mood, normal affect. SKIN: Warm, Dry, normal turgor, no rashes or lesions noted. Limitations: no limitations Course Vital Signs 12/19/18 19:32 Temperature 99.1 F Pulse Rate 62 Respiratory 16 Rate Blood Pressure 123/83 O2 Sat by Pulse 99 Oximetry Medical Decision Making - Medical Decision Making Patient is a 23-year-old female complaining of abdominal pain on and off 3 days. Patient has no associated symptoms such as nausea, vomiting, diarrhea. Patient denies fever, chills, urinary symptoms. On exam patient is nontender abdomen. CBC, CMP, and urine are within normal limits. KUB shows no acute process. Patient will be discharged home and given a referral to GI. She also be giving prescription for Bentyl. Patient is okay with this plan. - Lab Data Result diagrams: 12/19/18 20:06 12/19/18 20:06 Lab Results 12/19/18 12/19/18 12/19/18 Range/Units 20:06 20:06 20:06 WBC 9.7 (3.8-10.6) k/uL RBC 5.23 (3.80-5.40) m/uL Hgb 15.4 (11.4-16.0) gm/dL Hct 46.3 H (34.0-46.0) % MCV 88.7 (80.0-100.0) fL MCH 29.4 (25.0-35.0) pg MCHC 33.1 (31.0-37.0) g/dL RDW 13.8 (11.5-15.5) % Plt Count 202 (150-450) k/uL Neutrophils % 68 % Lymphocytes % 24 % Monocytes % 5 % Eosinophils % 1 % Basophils % 0 % Neutrophils # 6.5 (1.3-7.7) k/uL Lymphocytes # 2.4 (1.0-4.8) k/uL Monocytes # 0.5 (0-1.0) k/uL Eosinophils # 0.1 (0-0.7) k/uL Basophils # 0.0 (0-0.2) k/uL Sodium 140 (137-145) mmol/L Potassium 4.1 (3.5-5.1) mmol/L Chloride 106 (98-107) mmol/L Carbon Dioxide 25 (22-30) mmol/L Anion Gap 9 mmol/L BUN 10 (7-17) mg/dL Creatinine 0.68 (0.52-1.04) mg/dL Est GFR (CKD-EPI)AfAm >90 (>60 ml/min/1.73 sqM) Est GFR (CKD-EPI)NonAf >90 (>60 ml/min/1.73 sqM) Glucose 91 (74-99) mg/dL Calcium 10.1 (8.4-10.2) mg/dL Total Bilirubin 0.5 (0.2-1.3) mg/dL AST 20 (14-36) U/L ALT <6 L (9-52) U/L Alkaline Phosphatase 70 (38-126) U/L Total Protein 8.1 (6.3-8.2) g/dL Albumin 5.0 (3.5-5.0) g/dL Urine Color Urine Appearance (Clear) Urine pH (5.0-8.0) Ur Specific [place] (1.001-1.035) Urine Protein (Negative) Urine Glucose (UA) (Negative) Urine Ketones (Negative) Urine Blood (Negative) Urine Nitrite (Negative) Urine Bilirubin (Negative) Urine Urobilinogen (<2.0) mg/dL Ur Leukocyte Esterase (Negative) Urine WBC (0-5) /hpf Ur Squamous Epith Cells (0-4) /hpf Urine Bacteria (None) /hpf Urine HCG, Qual Not Detected (Not Detectd) 12/19/18 Range/Units 20:06 WBC (3.8-10.6) k/uL RBC (3.80-5.40) m/uL Hgb (11.4-16.0) gm/dL Hct (34.0-46.0) % MCV (80.0-100.0) fL MCH (25.0-35.0) pg MCHC (31.0-37.0) g/dL RDW (11.5-15.5) % Plt Count (150-450) k/uL Neutrophils % % Lymphocytes % % Monocytes % % Eosinophils % % Basophils % % Neutrophils # (1.3-7.7) k/uL Lymphocytes # (1.0-4.8) k/uL Monocytes # (0-1.0) k/uL Eosinophils # (0-0.7) k/uL Basophils # (0-0.2) k/uL Sodium (137-145) mmol/L Potassium (3.5-5.1) mmol/L Chloride (98-107) mmol/L Carbon Dioxide (22-30) mmol/L Anion Gap mmol/L BUN (7-17) mg/dL Creatinine (0.52-1.04) mg/dL Est GFR (CKD-EPI)AfAm (>60 ml/min/1.73 sqM) Est GFR (CKD-EPI)NonAf (>60 ml/min/1.73 sqM) Glucose (74-99) mg/dL Calcium (8.4-10.2) mg/dL Total Bilirubin (0.2-1.3) mg/dL AST (14-36) U/L ALT (9-52) U/L Alkaline Phosphatase (38-126) U/L Total Protein (6.3-8.2) g/dL Albumin (3.5-5.0) g/dL Urine Color Light Yellow Urine Appearance Clear (Clear) Urine pH 5.5 (5.0-8.0) Ur Specific [place] 1.005 (1.001-1.035) Urine Protein Negative (Negative) Urine Glucose (UA) Negative (Negative) Urine Ketones Negative (Negative) Urine Blood Trace H (Negative) Urine Nitrite Negative (Negative) Urine Bilirubin Negative (Negative) Urine Urobilinogen <2.0 (<2.0) mg/dL Ur Leukocyte Esterase Negative (Negative) Urine WBC <1 (0-5) /hpf Ur Squamous Epith Cells <1 (0-4) /hpf Urine Bacteria Rare H (None) /hpf Urine HCG, Qual (Not Detectd) Disposition Clinical Impression: Abdominal pain Disposition: HOME SELF-CARE Condition: Stable Instructions (If sedation given, give patient instructions): Abdominal Pain (ED) Additional Instructions: Please return to the Emergency Department if symptoms worsen or any other concerns. Follow-up with GI. Prescriptions: Dicyclomine [Bentyl] 20 mg PO TID #30 tablet Is patient prescribed a controlled substance at d/c from ED?: No Referrals: Giulia Love MD [Primary Care Provider] - 1-2 days
[2018-12-19 20:23] LABS: Appearance,Urine Clear (Clear); Bacteria,Urine Rare /hpf; Bilirubin,Urine Negative (Negative); Blood,Urine Trace (Negative); Color,Urine Light Yellow; Glucose,Urine (UA) Negative (Negative); Ketones,Urine Negative (Negative); Leukocyte Esterase,Urine Negative (Negative); Nitrite,Urine Negative (Negative); PH, Urine 5.5 (5.0-8.0); Protein,Urine Negative (Negative); Specific Gravity,Urine 1.005 (1.001-1.035); Squamous Epithelial Cell,Urine <1 /hpf (0-4); Urobilinogen,Urine <2.0 mg/dL (<2.0)
[2018-12-19 20:24] LABS: ALT <6 U/L (9-52); AST 20 U/L (14-36); African American GFR (CKD) >90 (>60 ml/min/1.73 sqM); Alkaline Phosphatase 70 U/L (38-126); Anion Gap 9 mmol/L; Blood Urea Nitrogen 10 mg/dL (7-17); Calcium 10.1 mg/dL (8.4-10.2); Carbon Dioxide 25 mmol/L (22-30); Chloride 106 mmol/L (98-107); Glucose 91 mg/dL (74-99); Potassium 4.1 mmol/L (3.5-5.1); Sodium 140 mmol/L (137-145); Total Bilirubin 0.5 mg/dL (0.2-1.3); Total Protein 8.1 g/dL (6.3-8.2)
[2018-12-19 20:52] LABS: Basophils % (A) 0 %; Eosinophils # (A) 0.1 k/uL (0-0.7); Eosinophils % (A) 1 %; HCT 46.3 % (34.0-46.0); HGB 15.4 gm/dL (11.4-16.0); Lymphocytes # (A) 2.4 k/uL (1.0-4.8); Lymphocytes % (A) 24 %; MCH 29.4 pg (25.0-35.0); MCHC 33.1 g/dL (31.0-37.0); MCV 88.7 fL (80.0-100.0); Mean Platelet Volume 8.3; Monocytes # (A) 0.5 k/uL (0-1.0); Monocytes % (A) 5 %; Neutrophils # (A) 6.5 k/uL (1.3-7.7); Neutrophils % (A) 68 %; Platelet Count 202 k/uL (150-450); RBC 5.23 m/uL (3.80-5.40); RDW 13.8 % (11.5-15.5); WBC 9.7 k/uL (3.8-10.6)
[2018-12-19] MEDS ORDERED: ACETAMINOPHEN TAB 500 MG TAB PO STA (21:07)
--- NOTE | 2018-12-19 21:56 | XR ---
EXAMINATION TYPE: XR KUB DATE OF EXAM: 12/19/2018 COMPARISON: 01/03/2014 HISTORY: Pain TECHNIQUE: 2 upright views FINDINGS: Visualized lung bases and pleural spaces are negative. There is no pneumoperitoneum or pneumatosis. Bowel gas pattern is normal. No definite acute skeletal findings or acute soft tissue findings. IMPRESSION: No acute radiographic process.
== END 2018-12-19 22:38 | disposition home or self-care (01) ==
LOC: EC 19:17
DX: R10.9 Unspecified abdominal pain (principal); F17.200 Nicotine dependence, unspecified, uncomplicated; Z98.51 Tubal ligation status; Z88.0 Allergy status to penicillin
CPT/HCPCS: 36415; 74018; 80053; 81001; 81025; 85025; 96360; 99284

== ENCOUNTER 2021-06-15 13:21 | Emergency (ER) | payer OTHER ==
[2021-06-15 13:34] VITALS: BP 117/84; PULSE 116; TEMP 100.3
[2021-06-15 14:39] VITALS: RESP 16
[2021-06-15] MEDS ORDERED: ACETAMINOPHEN TAB 325 MG TAB PO STA (14:53)
[2021-06-15] MEDS ORDERED: IBUPROFEN 600 MG TAB PO STA (14:53)
[2021-06-15] MEDS ORDERED: SOTROVIMAB (EUA) 500 MG in SODIUM CHLORIDE 0.9% 100 ML IVPB ONE (15:30)
[2021-06-15] MEDS ORDERED: DEXAMETHASONE SOD PHOSPHATE 10 MG/ML 1 ML VIAL IVP STA (15:47)
--- NOTE | 2021-06-15 15:49 | ED ---
Fever HPI - General Chief Complaint: Fever Stated Complaint: Fever/cough/back pain Time Seen by Provider: 06/15/21 14:32 Source: patient, RN notes reviewed Mode of arrival: ambulatory Limitations: no limitations - History of Present Illness Initial Comments: Patient is a 25-year-old female that presents to the emergency department complaining of fever and bodyaches starting yesterday. She notes she came to the emergency room today get tested for Covid. She was otherwise well- appearing. She denied any chest pain shortness of breath headache nausea vomiting diarrhea constipation fatigue chills. - Related Data Home Medications Medication Instructions Recorded Confirmed Ibuprofen [Motrin] 800 mg PO TID PRN 12/19/18 12/19/18 Previous Rx's Medication Instructions Recorded Dicyclomine [Bentyl] 20 mg PO TID #30 tablet 12/19/18 Allergies Allergy/AdvReac Type Severity Reaction Status Date / Time amoxicillin Allergy Rash/Hives Verified 06/15/21 13:29 Penicillins Allergy Rash/Hives Verified 06/15/21 13:29 Review of Systems ROS Statement: Those systems with pertinent positive or pertinent negative responses have been documented in the HPI. ROS Other: All systems not noted in ROS Statement are negative. Past Medical History Past Medical History: No Reported History Additional Past Medical History / Comment(s): Obstetric history: first was a vaginal delivery in 2013, 7#5oz. Second was a vaginal delivery in 2014, 5#12 oz. This is her third and she's had care with me since 11 weeks. B+, abs neg, Rub Imm, RPR NR, Hep B neg. GBS neg. History of Any Multi-Drug Resistant Organisms: None Reported Past Surgical History: No Surgical Hx Reported, Tubal Ligation Additional Past Surgical History / Comment(s): DNC Past Anesthesia/Blood Transfusion Reactions: No Reported Reaction Past Psychological History: No Psychological Hx Reported Smoking Status: Current every day smoker Past Alcohol Use History: Occasional Past Drug Use History: Marijuana - Past Family History Mother Family Medical History: Thyroid Disorder Father History Unknown: Yes General Exam Limitations: no limitations General appearance: alert, in no apparent distress, obese Head exam: Present: atraumatic, normocephalic, normal inspection Eye exam: Present: normal appearance, PERRL, EOMI. Absent: scleral icterus, conjunctival injection, periorbital swelling ENT exam: Present: normal exam, mucous membranes moist Neck exam: Present: normal inspection Respiratory exam: Present: normal lung sounds bilaterally. Absent: respiratory distress, wheezes, rales, rhonchi, stridor Cardiovascular Exam: Present: regular rate, normal rhythm, normal heart sounds. Absent: systolic murmur, diastolic murmur, rubs, gallop, clicks GI/Abdominal exam: Present: soft, normal bowel sounds. Absent: distended, tenderness, guarding, rebound, rigid Extremities exam: Present: normal inspection, full ROM, normal capillary refill. Absent: tenderness, pedal edema, joint swelling, calf tenderness Neurological exam: Present: alert, oriented X3 Psychiatric exam: Present: normal affect, normal mood Skin exam: Present: warm, dry, intact, normal color. Absent: rash Course Vital Signs 06/15/21 06/15/21 13:29 14:36 Temperature 100.3 F H Pulse Rate 116 H Respiratory 20 16 Rate Blood Pressure 117/84 O2 Sat by Pulse 98 Oximetry Medical Decision Making - Medical Decision Making 25-year-old female complaining of fever times one. Covid test, 600 mg of Motrin, 650 mg of Tylenol ordered. Covid test positive. Patient does meet criteria for monoclonal antibody. Patient wishes to undergo infusion and is agreeable with discharge home after. 10 mg Decadron ordered. Case discussed with Dr. Durham - Lab Data Lab Results 06/15/21 Range/Units 13:35 Coronavirus (PCR) Detected A (Not Detectd) Disposition Clinical Impression: COVID, Fever Disposition: HOME SELF-CARE Condition: Stable Instructions (If sedation given, give patient instructions): Fever in Adults (ED) Additional Instructions: Please return to the Emergency Department if symptoms worsen or any other concerns. Is patient prescribed a controlled substance at d/c from ED?: No Referrals: Giulia Love MD [Primary Care Provider] - 1-2 days Time of Disposition: 15:49
[2021-06-15] MEDS ORDERED: SODIUM CHLORIDE 0.9% 50 ML IVPB ONE (16:00)
== END 2021-06-15 17:21 | disposition home or self-care (01) ==
LOC: EC 13:21
DX: U07.1 COVID-19 (principal); F17.200 Nicotine dependence, unspecified, uncomplicated; F12.90 Cannabis use, unspecified, uncomplicated; Z88.0 Allergy status to penicillin; Z98.51 Tubal ligation status
CPT/HCPCS: 99283; 87635; Q0247

== ENCOUNTER 2023-05-22 09:04 | Emergency (ER) | payer OTHER ==
[2023-05-22 09:25] VITALS: RESP 18
[2023-05-22] MEDS ORDERED: IPRATROPIUM-ALBUTEROL 3 ML NEB INHALATION STA (09:28)
--- NOTE | 2023-05-22 09:44 | XR ---
EXAMINATION TYPE: XR chest 2V DATE OF EXAM: 05/22/2023 9:37 AM CLINICAL INDICATION:Female, 27 years old with history of cough; COMPARISON: Chest radiographs from 11/20/2015 TECHNIQUE: XR chest 2V Frontal and lateral views of the chest. FINDINGS: Lungs/Pleura: There are bibasilar airspace opacities. There is no evidence of pleural effusion, focal consolidation, or pneumothorax. Pulmonary vascularity: Unremarkable. Heart/mediastinum: Cardiomediastinal silhouette is unremarkable. Musculoskeletal: No acute osseous pathology. Other findings: None IMPRESSION: Bibasilar airspace opacities correlate for pneumonia.
--- NOTE | 2023-05-22 09:49 | ED ---
URI HPI - General Chief Complaint: Upper Respiratory Infection Stated Complaint: Cough,HENRI Time Seen by Provider: 05/22/23 09:16 Source: patient, RN notes reviewed Mode of arrival: ambulatory Limitations: no limitations - History of Present Illness Initial Comments: 27-year-old female presents emergency Department with chief complaint of cough congestion. She states she's been sick for last 2 weeks. Patient was seen in urgent care and was placed on steroids, doxycycline. She states she completed the course has recently worsened. Patient states she has productive cough states continues to wheeze, complains of pain when she coughs. Patient has a history of asthma but she states was a smoker prior to getting sick. Patient denies any nausea vomiting diarrhea constipation she does complain of night sweats. - Related Data Previous Rx's Medication Instructions Recorded Albuterol Nebulized [Ventolin 2.5 mg INHALATION Q4H PRN #75 ml 05/22/23 Nebulized] Azithromycin [Zithromax Z Pack] 0 tab PO DIRECTED #6 tab 05/22/23 predniSONE 50 mg PO DAILY #5 tab 05/22/23 Allergies Allergy/AdvReac Type Severity Reaction Status Date / Time amoxicillin Allergy Rash/Hives Verified 05/22/23 09:14 Penicillins Allergy Rash/Hives Verified 05/22/23 09:14 Review of Systems ROS Statement: Those systems with pertinent positive or pertinent negative responses have been documented in the HPI. ROS Other: All systems not noted in ROS Statement are negative. Past Medical History Past Medical History: No Reported History Additional Past Medical History / Comment(s): Obstetric history: first was a vaginal delivery in 2013, 7#5oz. Second was a vaginal delivery in 2014, 5#12 oz. This is her third and she's had care with [facility] since 11 weeks. B+, abs neg, Rub Imm, RPR NR, Hep B neg. GBS neg. History of Any Multi-Drug Resistant Organisms: None Reported Past Surgical History: No Surgical Hx Reported, Tubal Ligation Additional Past Surgical History / Comment(s): DNC Past Anesthesia/Blood Transfusion Reactions: No Reported Reaction Past Psychological History: No Psychological Hx Reported Smoking Status: Current every day smoker Past Alcohol Use History: Occasional Past Drug Use History: Marijuana - Past Family History Mother Family Medical History: Thyroid Disorder Father History Unknown: Yes General Exam Limitations: no limitations General appearance: alert, in no apparent distress Head exam: Present: atraumatic, normocephalic, normal inspection Eye exam: Present: normal appearance, PERRL, EOMI. Absent: scleral icterus, conjunctival injection, periorbital swelling ENT exam: Present: normal exam, normal oropharynx, mucous membranes moist Neck exam: Present: normal inspection, full ROM. Absent: tenderness, meningismus, lymphadenopathy Respiratory exam: Present: wheezes, rhonchi. Absent: normal lung sounds bilaterally, respiratory distress, rales, stridor Cardiovascular Exam: Present: regular rate, normal rhythm, normal heart sounds. Absent: systolic murmur, diastolic murmur, rubs, gallop, clicks GI/Abdominal exam: Present: soft, normal bowel sounds. Absent: distended, tenderness, guarding, rebound, rigid Course Vital Signs 05/22/23 05/22/23 05/22/23 09:12 09:25 10:00 Temperature 98.1 F Pulse Rate 110 H 116 H Respiratory 18 18 Rate Blood Pressure 116/70 O2 Sat by Pulse 98 Oximetry 05/22/23 05/22/23 10:15 11:47 Temperature 98.9 F Pulse Rate 108 H 98 Respiratory 18 Rate Blood Pressure 126/78 O2 Sat by Pulse 97 Oximetry Medical Decision Making - Medical Decision Making Was pt. sent in by a medical professional or institution ([facility], [employer], urgent care, hospital, or snf...) When possible be specific @ -No Did you speak to anyone other than the patient for history (EMS, parent, family, police, friend...)? What history was obtained from this source @ -No Did you review nursing and triage notes (agree or disagree)? Why? @ -I reviewed and agree with nursing and triage notes Were old charts reviewed (outside hosp., previous admission, EMS record, old EKG, old radiological studies, urgent care reports/EKG's, snf records)? Report findings @ -No old charts were reviewed Differential Diagnosis (chest pain, altered mental status, abdominal pain women, abdominal pain men, vaginal bleeding, weakness, fever, dyspnea, syncope, headache, dizziness, GI bleed, back pain, seizure, CVA, palpatations, mental health, musculoskeletal)? @ -URI, pneumonia, RSV, influenza, covid19 EKG interpreted by me (3pts min.). @ -None X-rays interpreted by me (1pt min.). @ -Chest x-ray shows bilateral pneumonia CT interpreted by me (1pt min.). @ -None done U/S interpreted by me (1pt. min.). @ -None done What testing was considered but not performed or refused? (CT, X-rays, U/S, labs)? Why? @ -None What meds were considered but not given or refused? Why? @ -None Did you discuss the management of the patient with other professionals (professionals i.e. DrMaura, PA, [employer], lab, RT, psych nurse, clinical social work aide, video producer, teacher, aoc airspace control officer, case supervisor)? Give summary @ -No Was smoking cessation discussed for >3mins.? @ -No Was critical care preformed (if so, how long)? @ -No Were there social determinants of health that impacted care today? How? (Homelessness, low income, unemployed, alcoholism, drug addiction, transportation, low edu. Level, literacy, decrease access to med. care, senior living, rehab)? @ -No Was there de-escalation of care discussed even if they declined (Discuss DNR or withdrawal of care, Hospice)? DNR status @ -No What co-morbidities impacted this encounter? (DM, HTN, Smoking, COPD, CAD, Cancer, CVA, ARF, Chemo, Hep., AIDS, mental health diagnosis, sleep apnea, morbid obesity)? @ -Smoking Was patient admitted / discharged? Hospital course, mention meds given and route, prescriptions, significant lab abnormalities, going to OR and other pertinent info. @ -Discharged patient felt greatly improved after DuoNeb treatment patient has evidence of pneumonia along with diffuse fungal spasms. Patient was given Rocephin will be discharged on prednisone, azithromycin she is also provided albuterol treatments for at home. Undiagnosed new problem with uncertain prognosis? @ -No Drug Therapy requiring intensive monitoring for toxicity (Heparin, Nitro, Insulin, Cardizem)? @ -No Were any procedures done? @ -No Diagnosis/symptom? @ -Pneumonia Acute, or Chronic, or Acute on Chronic? @ -Acute Uncomplicated (without systemic symptoms) or Complicated (systemic symptoms)? @ -Complicated Side effects of treatment? @ -No Exacerbation, Progression, or Severe Exacerbation? @ -No Poses a threat to life or bodily function? How? (Chest pain, [place], [place], pneumonia, PE, COPD, DKA, ARF, appy, cholecystitis, CVA, Diverticulitis, Homicidal, Suicidal, threat to staff... and all critical care pts) @ -Yes patient has pneumonia, could lead to respiratory arrest or failure - Lab Data Lab Results 05/22/23 Range/Units 10:14 Influenza Type A (PCR) Not Detected (Not Detectd) Influenza Type B (PCR) Not Detected (Not Detectd) RSV (PCR) Not Detected (Not Detectd) SARS-CoV-2 (PCR) Not Detected (Not Detectd) Disposition Clinical Impression: Pneumonia Disposition: HOME SELF-CARE Condition: Stable Instructions (If sedation given, give patient instructions): Pneumonia (ED) Additional Instructions: Please return to the Emergency Department if symptoms worsen or any other concerns. Prescriptions: predniSONE 50 mg PO DAILY #5 tab Albuterol Nebulized [Ventolin Nebulized] 2.5 mg INHALATION Q4H PRN #75 ml PRN Reason: difficulty in breathing Azithromycin [Zithromax Z Pack] 0 tab PO DIRECTED #6 tab Is patient prescribed a controlled substance at d/c from ED?: No Referrals: Giulia Love MD [Primary Care Provider] - 1-2 days Time of Disposition: 11:08
[2023-05-22] MEDS ORDERED: cefTRIAXone 1,000 MG VIAL (IM USE) IM STA (11:21)
[2023-05-22 12:08] VITALS: BP 126/78; PULSE 98; TEMP 98.9
== END 2023-05-22 11:48 | disposition home or self-care (01) ==
LOC: EC 09:04
DX: J18.9 Pneumonia, unspecified organism (principal); J45.909 Unspecified asthma, uncomplicated; F17.200 Nicotine dependence, unspecified, uncomplicated; F12.90 Cannabis use, unspecified, uncomplicated; Z20.822 Contact with and (suspected) exposure to COVID-19; Z88.0 Allergy status to penicillin
CPT/HCPCS: 94640; 87636; 71046; 99285; 96372; J0696